=== PATIENT | male | born 2000 ===

== ENCOUNTER 2021-04-15 03:41 | Emergency (ER) | payer SELFPAY ==
[~2021-04-15] VITALS: Ht 170.2 cm; Wt 64.1 kg
[2021-04-15 03:53] VITALS: TEMP 98.3
[2021-04-15 04:10] LABS: BASO % 0.3 % (0.0-2.0); EOS # 0.1 (0.0-0.7); EOS % 0.8 % (0-4.0); GRAN # 6.7 (1.4-6.5); GRAN % 73.4 % (42.2-75.2); LYMPH # 1.5 (1.2-3.4); LYMPH % 16.8 % (20.0-51.0); MEAN CELL VOLUME 93 fl (80.0-100.0); MEAN CORPUSCULAR HGB CONC 33 g/dl (33.0-37.0); MEAN PLATELET VOLUME 10.5 fl (7.4-10.4); MONO # 0.8 (0.1-0.6); MONO % 8.5 % (1.7-9.3); PLATELET COUNT 228 K/mm3 (130-400); RED BLOOD COUNT 5.91 M/mm3 (4.20-5.60); REDCELL DISTRIBUTION WIDTH-CV 13.1 % (11.5-14.5)
[2021-04-15 04:15] LABS: HEMOGLOBIN 18.3 g/dl (13.5-18.0); MEAN CORPUSCULAR HEMOGLOBIN 31 pg (27.0-31.0)
[2021-04-15 04:20] LABS: ALBUMIN 5.2 gm/dL (3.5-5.0); BILIRUBIN,TOTAL 2.1 mg/dL (0.0-1.0); CALCIUM 10.4 mg/dL (8.4-10.2); CREATININE, serum 1.2 (0.66-1.25); POTASSIUM 5.2 mmol/L (3.4-5.0); TOTAL PROTEIN 8.8 gm/dL (6.4-8.2)
[2021-04-15 05:03] LABS: HIV 1/2 Antibodies Non-Reactive; HIV-1p24 Antigen Non-Reactive
[2021-04-15] MEDS ORDERED: MAGIC MOUTHWASH1 M1 PO (05:27)
[2021-04-15] MEDS ORDERED: DOXYCYCLINE 10100 MG PO (05:27)
[2021-04-15] MEDS ORDERED: CEPACOL SORE TH1 LO8 MM (05:31)
[2021-04-15 06:52] VITALS: BP 130/62; PULSE 80
== END 2021-04-15 06:54 | disposition home or self-care (01) ==
LOC: COL.ER 03:41
PROVIDERS: Emergency Medicine
DX: B08.4 Enteroviral vesicular stomatitis with exanthem (principal); L01.00 Impetigo, unspecified
CPT/HCPCS: J0696; J1100; J1885; J7030